=== PATIENT | male | born 1990 | race Caucasian/White ===

== ENCOUNTER 2021-03-07 10:34 | Emergency (ER) | payer OTHER ==
[~2021-03-07] VITALS: Ht 190.5 cm; Wt 95.4 kg
[2021-03-07 10:51] VITALS: BP 113/68
--- NOTE | 2021-03-07 11:39 | PHYS DOC ---
Past History Past Surgical History: Other Additional Past Surgical Histo: repair pec muscle Alcohol Use: None Adult General Chief Complaint Chief Complaint: BACK PAIN OR INJURY [facility] HPI Patient is a 29 [place] male patient presents with back pain. Patient reports he had fallen forward onto his back a week ago month, had seen his primary care and had some back x-rays at that time. States they were negative at that time. Reports despite having some continued back pain, he was working yesterday, doing a lift, and felt a sharp pop and some continued pain in his left lower back. States as it is continued, he has felt a little bit of shooting pain going down his left leg. He has not taken any anti-inflammatories, he did take one oxycodone that he had had from a prior surgery. States it did not seem to help very much. States he had gone to work after exercising yesterday, on his feet for most of the day, and today he reports his back feels very stiff and he continues to have some discomfort. States he called his primary care, who is out of the office all week, and his nurse reported that patient had have a CT of his spine to make sure the nerves are okay, so he came to the emergency room. Patient denies any loss of bowel or bladder, denies any loss of sensation. Patient denies any additional complaints, states he is supposed to go back to work today, however he is not sure he is going to be able to because of his discomfort. Review of Systems Review of Systems Constitutional: Denies fever or chills [] Eyes: Denies change in visual acuity, redness, or eye pain [] HENT: Denies nasal congestion or sore throat [] Respiratory: Denies cough or shortness of breath [] Cardiovascular: No additional information not addressed in HPI [] GI: Denies abdominal pain, nausea, vomiting, bloody stools or diarrhea [] : Denies dysuria or hematuria [] Musculoskeletal: Denies joint pain [] states pain to left lower back Integument: Denies rash or skin lesions [] Neurologic: Denies headache, focal weakness or sensory changes [] states intermittent shooting pains down his left leg Endocrine: Denies polyuria or polydipsia [] All other systems were reviewed and found to be within normal limits, except as documented in this note. Allergies Allergies Allergies Coded Allergies Type Severity Reaction Last Updated Verified No Known Drug Allergies 03/07/21 No Physical Exam Physical Exam Constitutional: Well developed, well nourished, no acute distress, non-toxic appearance. [] HENT: Normocephalic, atraumatic, bilateral external ears normal, oropharynx moist, no oral exudates, nose normal. [] Eyes: PERRLA, EOMI, conjunctiva normal, no discharge. [] Neck: Normal range of motion, no tenderness, supple, no stridor. [] Cardiovascular:Heart rate regular rhythm, no murmur [] Lungs & Thorax: Bilateral breath sounds clear to auscultation [] Abdomen: Bowel sounds normal, soft, no tenderness, no masses, no pulsatile masses. [] Skin: Warm, dry, no erythema, no rash. [] Back: No tenderness, no CVA tenderness. [] No tenderness noted over palpation of lower back. Notes tenderness over spinous processes. Patient given back stiff and strength, upright. Extremities: No tenderness, no cyanosis, no clubbing, ROM intact, no edema. [] Patient moving all extremities, able to raise legs, ambulatory. Neurologic: Alert and oriented X 3, normal motor function, normal sensory function, no focal deficits noted. [] Psychologic: Affect normal, judgement normal, mood normal. [] Current Patient Data Vital Signs Vital Signs Date Time Temp Pulse Resp B/P (MAP) Pulse Ox O2 Delivery O2 Flow Rate FiO2 03/07/21 10:51 99.6 59 16 113/68 97 Room Air EKG EKG [] Radiology/Procedures Radiology/Procedures XR LUMBAR SPINE 4+V History: Reason: low back pain with trauma / Spl. Instructions: / History: Technique: 5 views lumbar spine. Comparison: None. Findings: Unfused posterior elements L5. Normal vertebral body height and alignment. No acute fracture. Mild degenerative disc changes most prominent L4-5 and L5-S1. Impression: 1. No acute osseous abnormalities. Electronically signed by: Ronan Casper DO (03/07/2021 12:20 PM) [id number] DICTATED AND SIGNED BY: RONAN CASPER DO DATE: 03/07/21 1217 CC: ALLEN VELARDE APRN; DERIK SANCHEZ MD ~MTH0 0 [] Heart Score C/O Chest Pain: No Risk Factors: Risk Factors: DM, Current or recent (<one month) smoker, HTN, HLP, family hist ory of CAD, obesity. Risk Scores: Risk Factors: DM, Current or recent (<one month) smoker, HTN, HLP, family history of CAD, obesity. Course & Med Decision Making Course & Med Decision Making Pertinent Labs and Imaging studies reviewed. (See chart for details) [] With a new injury, following a recent fall, will evaluate x-ray. Advised patient's a CT will not show any nerve issues, that would necessitate the use of an MRI which should be ordered through his primary care if he continued to have discomfort. Patient without any saddle paresthesia. Patient ambulatory. Patient with some numbness to extremity. Likely musculoskeletal E[place]one complaint, with no tenderness on spinal processes, will evaluate for bony abnormalities, disc abnormalities visible on x-ray, likely contributing to his discomfort and shooting pains. Will provide anti-inflammatories, muscle relaxers, and a dose of steroids. Reports no improvement in discomfort following meds. X ray without acute findings. Will plan to discharge with muscle relaxer and follow up with PCP. Patient asking for something stronger for pain medication, advise opioids are not indicated for muscle pain. Recommendations are muscle relaxants, anti inflammatory medications. Reports he will follow up with his PCP for pain medication. Dragon Disclaimer Dragon Disclaimer This electronic medical record was generated, in whole or in part, using a voice recognition dictation system. Departure Departure: Impression: Primary Impression: Lumbago of lumbar region with sciatica Disposition: HOME / SELF CARE / HOMELESS Condition: STABLE Referrals: DERIK SANCHEZ MD (PCP) Patient Instructions: Back Pain, Adult, Muscle Strain Additional Instructions: Take 600 mg ibuprofen every 8 hours for the next 5 days to help with the inflammation Avoid any heavy lifting Take the muscle relaxers as prescribed Apply ice to your back Follow up with your primary care as needed Scripts Cyclobenzaprine Hcl (CYCLOBENZAPRINE HCL) 10 Mg Tablet 1 TAB PO TID for back pain, #30 TAB Prov: ALLEN VELARDE APRN 03/07/21 ALLEN VELARDE APRN Mar 07, 2021 11:39
[2021-03-07] MEDS ORDERED: methylPREDNISolone ACETATE 40 MG/ML VIAL. IM ONE (11:45)
[2021-03-07] MEDS ORDERED: IBUPROFEN 600 MG TABLET. PO ONE (11:45)
[2021-03-07] MEDS ORDERED: CYCLOBENZAPRINE 10 MG TABLET. PO ONE (11:45)
--- NOTE | 2021-03-07 12:23 | RAD ---
XR LUMBAR SPINE 4+V History: Reason: low back pain with trauma / Spl. Instructions: / History: Technique: 5 views lumbar spine. Comparison: None. Findings: Unfused posterior elements L5. Normal vertebral body height and alignment. No acute fracture. Mild de generative disc changes most prominent L4-5 and L5-S1. Impression: 1. No acute osseous abnormalities. Electronically signed by: Sergio Figueroa DO (03/07/2021 12:20 PM) [id number]
[2021-03-07] MEDS ORDERED: CYCL-331 PO (12:40)
== END 2021-03-07 12:50 | disposition home or self-care (01) ==
LOC: ER 10:34
DX: M54.42 Lumbago with sciatica, left side (principal)
CPT/HCPCS: 72110; 96372; 99283; J1030

== ENCOUNTER 2021-03-24 12:13 | Emergency (ER) | payer OTHER ==
[~2021-03-24] VITALS: Ht 190.5 cm; Wt 90.8 kg
[~2021-03-24 12:13] MED LIST: CYCL-331 PO
[2021-03-24 12:15] VITALS: BP 128/79
[2021-03-24] MEDS ORDERED: IOHEXOL 300 MG/ML 75 ML VIAL. IV ONE (12:30)
--- NOTE | 2021-03-24 12:34 | PHYS DOC ---
Past History Past Surgical History: Other Additional Past Surgical Histo: repair pec muscle (DELMA EARLY APRN) Alcohol Use: None (DELMA EARLY APRN) General Adult EDM: Chief Complaint: MULTIPLE TRAUMA/FALL HPI: HPI: Patient is a 30-year-old male who presents to the ER for right rib pain, abdominal pain, left forearm pain after being thrown off a horse and into a cage today. Patient denies any head or neck pain or injury. He denies any loss of c onsciousness. Also denies any loss of bowel or bladder, saddle anesthesias, nausea or vomiting. Tetanus in the last 5 years. (DELMA EARLY APRN) Review of Systems: Review of Systems: 14 body systems of the review of systems have been reviewed. See HPI for pertinent positive and negative responses, otherwise all other systems are n egative, nonpertinent or noncontributory (DELMA EARLY APRN) Allergies: Allergies: Allergies Coded Allergies Type Severity Reaction Last Updated Verified No Known Drug Allergies 03/07/21 No (DELMA EARLY APRN) Physical Exam: PE: Constitutional: Well developed, well nourished, no acute distress, non-toxic appearance. [] HENT: Normocephalic, atraumatic Eyes: PERRL, EOMI, conjunctiva normal, no discharge. [] Neck: Normal range of motion, no tenderness, supple, no stridor. [] Cardiovascular:Heart rate regular rhythm, no murmur [] Lungs & Thorax: Bilateral breath sounds clear to auscultation, abrasion noted across sternum, pain with palpation of bilateral ribs, no crepitus, no flail chest, no obvious deformity [] Abdomen: Bowel sounds normal, soft, no masses, no pulsatile masses, abrasions noted to upper abdomen with tenderness with palpation generalized abdomen Skin: Warm, dry, no erythema, no rash. [] Back: No tenderness, normal range of motion Extremities: No tenderness, no cyanosis, no clubbing, ROM intact, no edema. Left forearm: Abrasion and small area of swelling noted to right forearm below elbow, neuro intact, range of motion intact, no obvious deformity. Neurologic: Alert and oriented X 3, normal motor function, normal sensory function, no focal deficits noted. [] Psychologic: Affect normal, judgement normal, mood normal. [] (DELMA EARLY APRN) Current Patient Data: Vital Signs: Vital Signs Date Time Temp Pulse Resp B/P (MAP) Pulse Ox O2 Delivery O2 Flow Rate FiO2 03/24/21 12:15 97.7 85 20 128/79 100 Room Air (DELMA EARLY APRN) EKG: EKG: [] (DELMA EARLY APRN) Radiology/Procedures: Radiology/Procedures: ROCEDURE: FOREARM LEFT Left forearm 2 views. HISTORY: Fell off horse 2 views were taken of the left forearm. There is not evidence of an acute fracture or osseous abnormality. The elbow is incompletely evaluated on the AP view. Fat pads the elbow are not displaced on the lateral view. IMPRESSION: 1. Elbow incompletely evaluated. 2. No acute fracture noted in the left forearm. Electronically signed by: Rudolph Mckinnon MD (03/24/2021 1:06 PM) [id number] DICTATED AND SIGNED BY: RUDOLPH MCKINNON MD DATE: 03/24/21 1305 CC: DELMA EARLY APRN; DERIK SANCHEZ MD ~MTH0 0 PROCEDURE: CT CHEST ABDOMEN PELVIS WO EXAM: CT Chest, Abdomen and Pelvis without IV contrast CLINICAL HISTORY: thrown off horse, c/o rib and abd pain COMPARISON: None. TECHNIQUE: Helical CT of the chest, abdomen and pelvis was performed without intravenous contrast. Axial, coronal and sagittal reformatted images were generated. ---PQRS compliance statement - One or more of the following individualized dose reduction techniques were utilized for this study: 1. Automated exposure control 2. Adjustment of the mA and/or kV according to patient size 3. Use of iterative reconstruction technique--- FINDINGS: Lack of intravenous contrast limits evaluation of solid organs, vasculature, and lymph nodes. Chest: No axillary lymphadenopathy. No mediastinal or hilar lymphadenopathy. Mild gynecomastia. Heart is not enlarged. No pericardial effusion. No suspicious lung nodule or mass is seen. Abdomen and Pelvis: High density material dependently within the gallbladder likely sludge. Spleen, adrenal glands and pancreas are unremarkable. No focal renal lesion. No hydronephrosis. No hydroureter. Bladder is unremarkable. Moderate to large volume colonic stool content is seen particularly in the rectum. No small or large bowel dilatation. No bowel obstruction. Colonic diverticula are seen. Appendix is normal. No abdominal or pelvic ascites. No abdominal or pelvic lymphadenopathy. Sclerotic focus right inferior pubic ramus likely bone island. Bilateral hip joint degenerative changes are seen. Prominence of the femoral head/neck junction bilaterally. IMPRESSION: 1. No evidence for acute thoracic, abdominal or pelvic trauma. 2. No definite acute fracture is identified although nondisplaced fractures may be occult. 3. Prominence of the femoral head/neck junction of the hips bilaterally may predispose to cam-type ILANA. Electronically signed by: Shant Erickson MD (03/24/2021 1:20 PM) [facility] DICTATED AND SIGNED BY: SHANT ERICKSON MD DATE: 03/24/21 3262 CC: DELMA EARLY APRN; DERIK SANCHEZ MD ~MTH0 0 [] (DELMA EARLY APRN) Heart Score: C/O Chest Pain: No Risk Factors: Risk Factors: DM, Current or recent (<one month) smoker, HTN, HLP, family history of CAD, obesity. Risk Scores: Score 0 - 3: 2.5% MACE over next 6 weeks - Discharge Home Score 4 - 6: 20.3% MACE over next 6 weeks - Admit for Clinical Observation Score 7 - 10: 72.7% MACE over next 6 weeks - Early Invasive Strategies (DELMA EARLY APRN) Course & Med Decision Making: Course & Med Decision Making Pertinent Labs and Imaging studies reviewed. (See chart for details) Patient is a 30-year-old male being seen in the ER for right rib, left arm, abdominal pain after being thrown off work-up in the ER consisted of a CT scan of his chest abdomen and pelvis as well as an x-ray of his left foot. CT and x- ray were negative for any acute findings. Patient advised to apply ice and take Tylenol/ibuprofen for pain. Patient will be discharged home with pain medication. I discussed with patient all findings and diagnostic testing as well as the need to follow-up with PCP for further evaluation and treatment or return to the ER if any new or worsening symptoms. Strict return precautions were also discussed at length. Patient voiced understanding and agreement with the plan. Patient is hemodynamically stable at the time of disposition. (DELMA EARLY APRN) Course & Med Decision Making I was the Attending physician on the above date of service of this patient. This patient was evaluated, examined, treated, and dispositioned from the emergency department by the mid-level practitioner. Although I was working at the time , no assistance was requested. Electronically signed, Nils Evans DO (NILS EVANS DO) Anne-Marie Disclaimer: Anne-Marie Disclaimer: This electronic medical record was generated, in whole or in part, using a voice recognition dictation system. (DELMA EARLY APRN) Departure Departure: Impression: Primary Impression: Chest wall contusion Qualified Codes: S20.219A - Contusion of unspecified front wall of thorax, initial encounter Additional Impressions: Abdominal wall contusion Qualified Codes: S30.1XXA - Contusion of abdominal wall, initial encounter Arm contusion Qualified Codes: S40.022A - Contusion of left upper arm, initial encounter Disposition: HOME / SELF CARE / HOMELESS Condition: GOOD Referrals: DERIK SANCHEZ MD (PCP) Patient Instructions: Chest Contusion Additional Instructions: You were seen in the ER for chest wall, abdominal, left arm pain after being thrown off a horse. Your images were negative for any acute findings. Please take ibuprofen or naproxen for mild pain. You are being discharged home with a prescription for [place]. This medication is hydrocodone and Tylenol combination tablet. This medication may cause drowsiness so do not take need to be alert and do not take with alcohol. You can also apply ice. Please follow-up with your primary care provider on Friday regarding your ER visit. If you develop worsening of your pain, shortness of breath, intractable nausea or vomiting, high fevers refractory to treatment, blood in your stools or vomit please return to the ER immediately. EMERGENCY DEPARTMENT GENERAL DISCHARGE INSTRUCTIONS Thank you for coming to [facility] (ED) today and trusting us with you care. We trust that you had a positivie experience in our Emergency Department. If you wish to speak to the department management, you may call the director at [phone]. YOUR FOLLOW UP INSTRUCTIONS ARE FOLLOWS: 1. Do you have a private Doctor? If you do not have a private doctor, please ask for a resource list of physicians or clinics that may be able to assist you with follow up care. 2. The Emergency Physician has interpreted your x-rays. The X-Ray specialist will also review them. If there is a change in the findings, you will be notified in 48 hours when at all possible. 3. A lab test or culture has been done, your results will be reviewed and you will be notified if you need a change in treatment. ADDITIONAL INSTRUCTIONS AND INFORMATION: 1. Your care today has been supervised by a physician who is specially trained in emergency care. Many problems require more than one evaluation for a complete diagnosis and treatment. We recommend that you schedule your follow up appointment as recommended to ensure complete treatment of you illness or injury. If you are unable to obtain follow up care and continue to have a problem, or if your condition worsens, we recommend that you return to the ED. 2. We are not able to safely determine your condition over the phone nor are we able to give sound medical advice over the phone. For these safety reasons, if you call for medical advice we will ask you to come to the ED for further evaluation. 3. If you have any questions regarding these discharge instructions please call the ED at [phone]. SAFETY INFORMATION: In the interest of safety, wellness, and injury prevention; we encourage you to wear your sealbelt, if you smoke; quite smoking, and we encourage family to use a protective helmet for bicycling and other sporting events that present an increased risk for head injury. IF YOUR SYMPTOMS WORSEN OR NEW SYMPTOMS DEVELOP, OR YOU HAVE CONCERNS ABOUT YOUR CONDITION; OR IF YOUR CONDITION WORSENS WHILE YOU ARE WAITING FOR YOUR FOLLOW UP A PPOINTMENT; EITHER CONTACT YOUR PRIMARY CARE DOCTOR, THE PHYSICIAN WHOSE NAME AND NUMBER YOU WERE GIVEN, OR RETURN TO THE ED IMMEDIATELY. Scripts Oxycodone Hcl/Acetaminophen (PERCOCET 5-325 MG TABLET ) 1 Each Tablet 1 TAB PO PRN Q6HRS PRN for PAIN for 2 Days, #8 TAB 0 Refills Prov: DELMA EARLY APRN 03/24/21 DELMA EARLY APRN Mar 24, 2021 12:34 NILS EVANS DO Mar 25, 2021 06:26
--- NOTE | 2021-03-24 13:09 | RAD ---
Left forearm 2 views. HISTORY: Fell off horse 2 views were taken of the left forearm. There is not evidence of an acute fracture or osseous abnorma lity. The elbow is incompletely evaluated on the AP view. Fat pads the elbow are not displaced on the lateral view. IMPRESSION: 1. Elbow incompletely evaluated. 2. No acute fracture noted in the left forearm. Electronically signed by: Rudolph Mckinnon MD (03/24/2021 1:06 PM) [id number]
--- NOTE | 2021-03-24 13:23 | RAD ---
EXAM: CT Chest, Abdomen and Pelvis without IV contrast CLINICAL HISTORY: thrown off horse, c/o rib and abd pain COMPARISON: None. TECHNIQUE: Helical CT of the chest, abdomen and pelvis was performed without intravenous contrast. Ax ial, coronal and sagittal reformatted images were generated. ---PQRS compliance statement - One or more of the following individualized dose reduction techniques were utilized for this study: 1. Automated exposure control 2. Adjustment of the mA and/or kV according to patient size 3. Use of iterative reconstruction technique--- FINDINGS: Lack of intravenous contrast limits evaluation of solid organs, vasculature, and lymph nodes. Chest: No axillary lymphadenopathy. No mediastinal or hilar lymphadenopathy. Mild gynecomastia. Heart is not enlarged. No pericardial effusion. No suspicious lung nodule or mass is seen. Abdomen and Pelvis: High density material dependently within the gallbladder likely sludge. Spleen, adrenal glands and pa ncreas are unremarkable. No focal renal lesion. No hydronephrosis. No hydroureter. Bladder is unremar kable. Moderate to large volume colonic stool content is seen particularly in the rectum. No small or large bowel dilatation. No bowel obstruction. Colonic diverticula are seen. Appendix is normal. No abdominal or pelvic ascites. No abdominal or pelvic lymphadenopathy. Sclerotic focus right inferior pubic ramus likely bone island. Bilateral hip joint degenerative irene es are seen. Prominence of the femoral head/neck junction bilaterally. IMPRESSION: 1. No evidence for acute thoracic, abdominal or pelvic trauma. 2. No definite acute fracture is identified although nondisplaced fractures may be occult. 3. Prominence of the femoral head/neck junction of the hips bilaterally may predispose to cam-type F AI. Electronically signed by: Shant Cisse MD (03/24/2021 1:20 PM) CHARIS
[2021-03-24] MEDS ORDERED: HYDR-2155 PO (13:35)
[2021-03-24] MEDS ORDERED: OXYC-299 PO (13:45)
[2021-03-24] MEDS ORDERED: OXYC1TAB15 PO (14:41)
== END 2021-03-24 13:48 | disposition home or self-care (01) ==
LOC: ER 12:13
DX: S20.211A Contusion of right front wall of thorax, initial encounter (principal); S30.1XXA Contusion of abdominal wall, initial encounter; S40.022A Contusion of left upper arm, initial encounter; V80.010A Animal-rider injured by fall from or being thrown from horse in noncollision accident, initial encounter; Y93.52 Activity, horseback riding; Y92.89 Other specified places as the place of occurrence of the external cause; Y99.8 Other external cause status
CPT/HCPCS: 71250; 73090; 74176; 99285-25